=== PATIENT | male | born 1975 | race Caucasian/White ===

== ENCOUNTER → 2017-07-26 11:18 | Outpatient (CLI) | payer OTHER, SELFPAY ==
--- NOTE | 2017-07-26 11:29 | XR_ITS ---
XR chest 2V CLINICAL INDICATION: ITS.REASON: PNEUMONIA LLL ORDERING PHYSICIAN: Lanre Gould MD PATIENT AGE: 42 years COMPARISON: 09/06/2016 FINDINGS: No lobar consolidation or collapse is evident. There is some increased tubular markings in the left lung base posteriorly raising the question of some mild bronchiectasis which may be confirmed with CT. Remaining lungs are clear. Mild kyphosis noted of the thoracic spine with mild wedging of mid dorsal vertebral bodies which appears chronic. IMPRESSION: 1. Possible left lower lobe bronchiectasis which may be confirmed with CT. 2. Mild thoracic kyphosis
== END ==
PROVIDERS: PCP Family Medicine; Visit Provider Family Medicine
DX: J18.1 Lobar pneumonia, unspecified organism (principal)
CPT/HCPCS: 71046

== ENCOUNTER → 2017-08-26 14:22 | Outpatient (CLI) | payer OTHER, SELFPAY ==
--- NOTE | 2017-08-26 14:27 | XR_ITS ---
XR chest 2V HISTORY: ITS.REASON: PNEUMONIA ORDERING PHYSICIAN: Arnold Gould MD PATIENT AGE: 42 years COMPARISON: 07/26/2017 FINDINGS: The cardiomediastinal silhouette and pulmonary vascularity are within normal limits. The lungs are clear without infiltrates, suspicious nodules, or pleural effusions. Increased markings are once again noted in the left lung base or not significant changed and may be related to overlying vessels and granuloma as opposed to bronchiectasis. CT may confirm. No acute bony abnormalities. IMPRESSION: No change with no acute finding
== END ==
PROVIDERS: PCP Family Medicine; Visit Provider Family Medicine
DX: J18.1 Lobar pneumonia, unspecified organism (principal)
CPT/HCPCS: 71046

== ENCOUNTER → 2021-08-20 14:23 | Outpatient (CLI) | payer OTHER, SELFPAY ==
[2021-08-20 15:03] LABS: Basophils # 0.1 K/mm3 (0-0.2); Basophils % 2.8 % (0.1-2.0); Eosinophils % 0.4 % (0.1-12.0); Hematocrit 46.1 % (42.0-52.0); Hemoglobin 15.6 g/dL (14.1-18.0); Lymphocytes # 1.1 K/mm3 (0.7-4.5); Lymphocytes % 32.1 % (10-50); Mean Corpuscular HGB Conc 33.9 g/dL (31.8-35.4); Mean Corpuscular Hemoglobin 31.4 pg (27.0-31.2); Mean Corpuscular Volume 92.6 fl (80-94); Mean Platelet Volume 7.5 fl (7.4-10.4); Monocytes # 0.4 K/mm3 (0.1-1.0); Monocytes % 12.4 % (1.7-9.3); Neutrophils # 1.8 K/mm3 (1.8-7.8); Neutrophils % 52.3 % (37.0-80.0); Platelet Count 293 K/mm3 (142-424); Red Blood Count 4.98 M/mm3 (4.60-6.20); Red Cell Distribution Width 13.5 % (11.5-17.5); White Blood Count 3.4 K/mm3 (4.8-10.8)
[2021-08-20 15:34] LABS: Chloride 100 mmol/L (98-107); Sodium 135 mmol/L (136-145)
[2021-08-20 15:35] LABS: Potassium 3.7 mmoL/L (3.5-5.1)
[2021-08-20 15:37] LABS: Alanine Aminotransferase 44 U/L (12-78); Albumin Level 4.2 g/dl (3.5-5.0); Alkaline Phosphatase 62 U/L (38-126); Amylase 65 U/L (30-110); Anion Gap 10.7 mEq/L (5-15); Aspartate Amino Transferase 44 U/L (17-59); Bilirubin,Total 0.8 mg/dl (0.2-1.3); Blood Urea Nitrogen 11 mg/dl (9-20); Calcium 8.9 mg/dl (8.4-10.2); Carbon Dioxide 28 mmol/L (22.0-30.0); Estimated Glomerular Filt Rate 80 ml/min (>60); GFR (African American) 97 ML/MIN (>60); Glucose 78 mg/dl (74-100); Lipase 149 U/L (23-300)
[2021-08-20 15:38] LABS: Albumin/Globulin Ratio 1.4 (1.1-1.8); Globulin 2.9 g/dL (1.3-3.2); Total Protein,Serum 7.1 g/dl (6.3-8.2)
== END ==
PROVIDERS: Visit Provider Family Medicine
DX: R10.13 Epigastric pain (principal)
CPT/HCPCS: 36415; 80053; 82150; 83690; 85025